=== PATIENT | female | born 1930 | race African-American/Black ===

== ENCOUNTER 2016-09-30 09:15 | Emergency (ER) | payer OTHER, MEDICAID ==
[2016-09-30 09:30] VITALS: BP 134/61; BMI 14.8
--- NOTE | 2016-09-30 09:51 | DR.GENAD ---
HPI - PCP Primary Care Physician: obdulio - Complaint/Symptoms Chief Complaint Doctors Comments: Dr. Miguel had patient sent to the emergency room to have feeding tube evaluated because the nurse states when they use it the patient cries out in pain and the tube has been leaking around the tube. Patient on bolus feeding at the [facility]. They denies fever, chills, nausea or vomiting. States to remove tube and replace with a recinos cath if it is not working. Chief Complaint:: [facility] called and stated that when you flush the gtube she would hollar like it was painfull. they stated that dr miguel wanted the patient sent here and he would see her in the er. Self Treatment fo Chief Complaint: gtube was flushed and air was heard. pt did tolerate well. - Nurses notes reviewed Nurses Notes Review: Yes - Source History Provided: Patient - Mode of Arrival Mode of Arrival: Ambulatory - Timing Onset of Chief Complaint: 09/30/16 Came on: Gradually - Duration Duration: Unknown - Location Location: epigastric area - Severity Severity: Moderate - Modifying Factors Worsens:: nothing Improves:: nothing PMH - PMH Past Medical History: Yes Past Medical History: Anxiety, Arthritis, Dementia, GERD, Hypertension Past Surgical History: Yes (unable to verbalize) - Family History History of Family Medical Conditions: No - Social History Does patient currently use any type of tobacco product: No Have you used tobacco products in the last 12 months: No Type of Tobacco Use: None Does any household member use tobacco: No Alcohol Use: None Do you use any recreational Drugs:: No Lives With: Family Lives Where: Home - infectious screening In the last 2 months have you had wt loss of >10#?: NO Have you had fever, night sweats or hemotysis?: No Have you traveled outside the country in the last 6 months?: No Isolation: Standard ROS - Review of Systems Constitutional: No Symptoms Reported, Loss of Appetite Eyes: No Symptoms Reported ENTM: No Symptoms Reported Respiratoy: No Symptoms Reported Cardiovascular: No Symptoms Reported Gastrointestinal/Abdominal: No Symptoms Reported. negative: See HPI, Abdominal Pain, Constipation, Diarrhea, Nausea, Vomiting, Food Intolerance, Other Genitourinary: No Symptoms Reported Neurological: No Symptoms Reported, Weakness, Problems Walking (patient bed confined) Musculoskeletal: No Symptoms Reported Integumentary: No Symptoms Reported Hematologic/Lymphatic: No Symptoms Reported Endocrine: No Symptoms Reported Psychiatric: No Symptoms Reported PE - Vital Signs Vitals: Temperature 97.7 F Pulse Rate 81 Respiratory Rate 16 Blood Pressure 134/61 O2 Sat by Pulse Oximetry 98 - General Limitations: Altered Mental Status General Appearance: Alert, In No Apparent Distress, Cachectic - Head Head Exam: Normal Inspection, Atraumatic, Normocephalic - Eyes Eye exam: Normal Appearance, PERRL, EOMI. negative: Scleral Icterus, Conjunctival Injection, Nystagmus, Miosis, Mydrasis, Periorbital Swelling, Periorbital Tenderness, Other - ENT ENT Exam: Normal Exam, Normal Oropharynx, Normal External Ear Exam, Mucous Membranes Moist, TM's Normal Bilaterally External Ear Exam: Normal External Inspection TM/Canal Exam: Bilateral Normal Nose Exam: Normal Nose Exam. negative: Sinus Tenderness, Nasal Deviation, Crepitus, Septal Hematoma, Laceration, Abrasion, Other Mouth Exam: Normal Inspection Throat Exam: Normal Inspection - Neck Neck Exam: Normal Inspection, Full ROM, Trachea Midline. negative: Tenderness, Meningismus, Lymphadenopathy, Thyromegaly, Other - Chest Chest Inspection: Normal Inspection, Symmetric Chest Wall Rise - Respiratory Respiratory Exam: Normal Lung Sounds Bilat Respiratory Exam: Bilateral Clear to Auscultation, Bilateral Decreased Breath Sounds - Cardiovascular Cardiovascular Exam: Regular Rate, Normal Rhythm, Normal Heart Sounds, Systolic Murmur - Abdominal Exam Abdominal Exam: Normal Inspection, Normal Bowel Sounds, Soft, Dimnished Bowel Sounds. negative: Distention, Tenderness, Guarding, Rebound, Rigidity, Hyperactive Bowel Sounds, Hypoactive Bowel Sounds, Organomegaly, Trauma, Incision, Ascites, Mass, Bruit, Pulsatile Mass, Hernia, Other Abdominal Tenderness: Epigastrium, Mild. negative: RUQ, RLQ, LUQ, LLQ, Suprapubic, Diffuse, Moderate, Severe, Other - Extremities Extremities Exam: Normal Inspection, Normal Capillary Refill. negative: Full ROM (contractures lower extremities), Tenderness, Edema, Joint Swelling, Calf Tenderness, Other - Back Back Exam: Normal Inspection, Full ROM. negative: Tenderness, (R) CVA Tenderness, (L) CVA Tenderness, Muscle Spasm, Paraspinal Tenderness, Vertebral Tenderness, Rashes, (R) Sciatic Notch Tenderness, (L) Sciatic Notch Tendern, (R ) Straight Leg Raise, (L) Straight Leg Raise, Other - Neurologic Neurological Exam: Oriented X3, Reflexes Normal. negative: Alert (lethargic), CN II-XII Intact (unable to completely evaluate), Normal Gait (gait not tested) - Psychiatric Psychiatric Exam: Normal Affect. negative: Normal Mood, Depressed, Agitated, Anxious, Flat Affect, Manic, Homicidal Ideation, Suicidal Ideation, Other - Skin Skin Exam: Warm, Dry, Intact, Pallor ROR - Labs Reviewed Laboratory Results Reviewed?: Yes (all labs and x-ray results reviewed and discussed with patient) Result Diagrams: 09/30/16 10:20 09/30/16 10:20 Laboratory: WBC 6.8 X10^3/uL (3.6-10.0) 09/30/16 10:20 RBC 5.40 X10^6/uL (3.5-5.4) 09/30/16 10:20 Hgb 13.7 g/dL (12.0-16.0) 09/30/16 10:20 Hct 43.1 % (36.0-47.0) 09/30/16 10:20 MCV 79.9 fL (80.0-100.0) L 09/30/16 10:20 MCH 25.4 pg (27.0-34.0) L 09/30/16 10:20 MCHC 31.8 g/dL (33.0-35.0) L 09/30/16 10:20 RDW 14.0 % (11.6-16.5) 09/30/16 10:20 Plt Count 392 X10^3/uL (150.0-450.0) 09/30/16 10:20 Plt Count Comment Adequate (ADEQUATE) 09/30/16 10:20 MPV 8.0 fL (7.4-11.0) 09/30/16 10:20 Neut % 56.1 % (42.0-75.0) 09/30/16 10:20 Lymph % 31.7 % (21.0-51.0) 09/30/16 10:20 Davis % 9.4 % (0.0-13.0) 09/30/16 10:20 Eos % 1.7 % (0.9-2.9) 09/30/16 10:20 Baso % 1.1 % (0.2-1.0) H 09/30/16 10:20 Neut # 3.8 x10^3/uL (2.2-4.8) 09/30/16 10:20 Lymph # 2.1 X10^3/uL (1.3-2.9) 09/30/16 10:20 Davis # 0.6 x10^3/uL (0.3-0.8) 09/30/16 10:20 Eos # 0.1 x10^3/uL (0.0-0.2) 09/30/16 10:20 Baso # 0.1 X10^3/uL (0.0-0.1) 09/30/16 10:20 Absolute Nucleated RBC 0.0 /100WBC 09/30/16 10:20 Plt Morphology Comment Normal (NORMAL) 09/30/16 10:20 RBC Morphology Abnormal (NORMAL) A 09/30/16 10:20 Hypochromasia Slight A 09/30/16 10:20 Sodium 143 mmol/L (136-145) 09/30/16 10:20 Corrected Sodium TNP 09/30/16 10:20 Potassium 3.6 mmol/L (3.5-5.1) 09/30/16 10:20 Chloride 105 mmol/L (98-107) 09/30/16 10:20 Carbon Dioxide 26.7 mmol/L (21-32) 09/30/16 10:20 BUN 19 mg/dL (7-18) H 09/30/16 10:20 Creatinine 0.80 mg/dL (0.55-1.02) 09/30/16 10:20 Est GFR (MDRD) Af Amer > 60 (>60) 09/30/16 10:20 Est GFR (MDRD) Non-Af > 60 (>60) 09/30/16 10:20 Glucose 99 mg/dL (65-99) 09/30/16 10:20 Calcium 9.3 mg/dL (8.5-10.1) 09/30/16 10:20 - XRAY XRAY Interpreted by: Radiologist (KUB: Intraluminal position of an uncomplicated gastric tube. with contrast filling the stomach indicate intraluminal position of gastric tube without visible complications.) - Diagnosis Discharge Problem: gastric tube disfunction, Constipation - Discharge Plan Disposition: 64 DIS/XFER TO MEDICAID NURS Condition: Stable - Follow ups/Referrals Follow ups/Referrals: CHEMO MIGUEL [Primary Care Provider] - 3 days - Instructions Instructions: Care of a Feeding Tube, Constipation, Adult
--- NOTE | 2016-09-30 10:21 | RAD ---
History: Evaluate G-tube placement. Exam: KUB imaging demonstrates contrast filling the stomach which would indicate intraluminal positi on of a gastric tube without visible complication. The bowel gas pattern is nonspecific. There is a large quantity of colonic stool observed. No other complications are appreciated. There is diffuse t horacolumbar spondylosis without acute fracture observed. Impression: Intraluminal position of an uncomplicated gastric tube. Reported By:
[2016-09-30 10:33] LABS: BASOPHILS # (AUTO) 0.1 X10^3/uL (0.0-0.1); BASOPHILS % (AUTO) 1.1 % (0.2-1.0); EOSINOPHILS # (AUTO) 0.1 x10^3/uL (0.0-0.2); EOSINOPHILS % (AUTO) 1.7 % (0.9-2.9); HEMATOCRIT 43.1 % (36.0-47.0); HEMOGLOBIN 13.7 g/dL (12.0-16.0); LYMPHOCYTES # (AUTO) 2.1 X10^3/uL (1.3-2.9); LYMPHOCYTES % (AUTO) 31.7 % (21.0-51.0); MEAN CORPUSCULAR HEMOGLOBIN 25.4 pg (27.0-34.0); MEAN CORPUSCULAR HGB CONC 31.8 g/dL (33.0-35.0); MEAN CORPUSCULAR VOLUME 79.9 fL (80.0-100.0); MONOCYTES # (AUTO) 0.6 x10^3/uL (0.3-0.8); MONOCYTES % (AUTO) 9.4 % (0.0-13.0); NEUTROPHILS # (AUTO) 3.8 x10^3/uL (2.2-4.8); NEUTROPHILS % (AUTO) 56.1 % (42.0-75.0); PLATELET COUNT 392 X10^3/uL (150.0-450.0); WHITE BLOOD COUNT 6.8 X10^3/uL (3.6-10.0)
[2016-09-30 10:57] LABS: HYPOCHROMASIA SLIGHT; PLATELET MORPHOLOGY COMMENT NORMAL (NORMAL)
[2016-09-30 11:04] LABS: BLOOD UREA NITROGEN 19 mg/dL (7-18); CALCIUM 9.3 mg/dL (8.5-10.1); CARBON DIOXIDE 26.7 mmol/L (21-32); CHLORIDE 105 mmol/L (98-107); GLUCOSE 99 mg/dL (65-99); SODIUM 143 mmol/L (136-145); eGFR BLACK RACES > 60 (>60); eGFR NON BLACK RACES > 60 (>60)
[2016-09-30] MEDS ORDERED: DULCOLAX TAB EC 5 MG PO ONE (11:25)
[2016-09-30] MEDS ORDERED: CHRONULAC PO STA (11:26)
[2016-09-30] MEDS ORDERED: CHRONULAC ONE (11:44)
== END 2016-09-30 12:00 ==
LOC: ER 09:21
DX: K94.23 Gastrostomy malfunction (principal); K59.09 Other constipation
CPT/HCPCS: 36415; 74000; 80048; 85025; 96365; 96374; 99283; A4222

== ENCOUNTER 2016-10-01 18:37 | Inpatient (IN) | payer OTHER, MEDICAID ==
[2016-10-01 21:35] LABS: BASOPHILS # (AUTO) 0.1 X10^3/uL (0.0-0.1); BASOPHILS % (AUTO) 1.9 % (0.2-1.0); EOSINOPHILS # (AUTO) 0.2 x10^3/uL (0.0-0.2); EOSINOPHILS % (AUTO) 3.2 % (0.9-2.9); HEMATOCRIT 42.9 % (36.0-47.0); HEMOGLOBIN 13.8 g/dL (12.0-16.0); LYMPHOCYTES # (AUTO) 2.1 X10^3/uL (1.3-2.9); LYMPHOCYTES % (AUTO) 28.6 % (21.0-51.0); MEAN CORPUSCULAR HEMOGLOBIN 25.5 pg (27.0-34.0); MEAN CORPUSCULAR VOLUME 79.5 fL (80.0-100.0); MEAN PLATELET VOLUME 7.7 fL (7.4-11.0); MONOCYTES # (AUTO) 0.6 x10^3/uL (0.3-0.8); MONOCYTES % (AUTO) 8.9 % (0.0-13.0); NEUTROPHILS # (AUTO) 4.2 x10^3/uL (2.2-4.8); NEUTROPHILS % (AUTO) 57.4 % (42.0-75.0); PLATELET COUNT 421 X10^3/uL (150.0-450.0); RED CELL DISTRIBUTION WIDTH 14.1 % (11.6-16.5); WHITE BLOOD COUNT 7.3 X10^3/uL (3.6-10.0)
[2016-10-01 21:44] LABS: ALANINE AMINOTRANSFERASE 15 Units/L (12-78); ALBUMIN 3.3 g/dL (3.4-5.0); ALKALINE PHOSPHATASE 93 Units/L (46-116); ASPARTATE AMINO TRANSFERASE 20 Units/L (15-37); BLOOD UREA NITROGEN 27 mg/dL (7-18); CALCIUM 9.8 mg/dL (8.5-10.1); CARBON DIOXIDE 25.5 mmol/L (21-32); CHLORIDE 104 mmol/L (98-107); COR CA(FOR HYPOALB) 10.4 mg/dL (8.5-10.1); CREATININE 0.91 mg/dL (0.55-1.02); GLUCOSE 90 mg/dL (65-99); SODIUM 143 mmol/L (136-145); TOTAL PROTEIN 8.6 g/dL (6.4-8.2); eGFR BLACK RACES > 60 (>60); eGFR NON BLACK RACES > 60 (>60)
[2016-10-01] MEDS: NS 1000 ML 1,000 ML IV SCH (22:03)
[2016-10-01 22:19] LABS: PLATELET MORPHOLOGY COMMENT NORMAL (NORMAL)
[2016-10-02 00:26] LABS: BILIRUBIN,URINE NEGATIVE (NEGATIVE); BLOOD/HEMOGLOBIN,URINE 1+ (NEGATIVE); GLUCOSE, URINE NEGATIVE (NEGATIVE); KETONES,URINE 3+ (NEGATIVE); LEUKOCYTE ESTERASE ,URINE 1+ (NEGATIVE); NITRITES,URINE NEGATIVE (NEGATIVE); PROTEIN,URINE 2+ (NEGATIVE); UROBILINOGEN,URINE 1+ (NORMAL)
[2016-10-02 00:39] LABS: APPEARANCE,URINE SLIGHTLY HAZY (CLEAR); COLOR,URINE YELLOW (YELLOW)
[2016-10-02 00:40] LABS: BACTERIA,URINE 1+ /HPF (NEGATIVE); MUCUS,URINE MODERATE /HPF (NEGATIVE); RBC,URINE 0-2 /HPF (NEGATIVE); SQUAMOUS EPITHELIAL CELL,UR RARE /HPF (NEGATIVE)
--- NOTE | 2016-10-02 06:36 | RAD ---
HISTORY: Abdominal pain, G-tube malfunction Study: Chest one view Comparison: None Findings: The heart is within normal limits in size. The aorta is ectatic. The sharron are normal. The lungs are free of acute alveolar infiltrates. No pleural effusions are identified. The visualized bony thorax is unremarkable. IMPRESSION: Lungs clear Reported By:
--- NOTE | 2016-10-02 06:36 | RAD ---
HISTORY: Abdomen pain, PEG tube malfunction Study: KUB Comparison: September 30, 2016 Findings: A gastrostomy tube is present with the balloon overlying the region of the gastric antrum distally. With the exception of a fairly large rectal fecal impaction, bowel gas pattern is unremarkable. No e vidence of bowel obstruction is seen. No opaque stones identified. Lung bases are clear. Osseous str uctures are intact. IMPRESSION: The gastrostomy tube is present with the balloon overlying the region of the gastric antrum distally . 9.2 centimeter rectal fecal impaction. No evidence of bowel obstruction. Reported By:
[2016-10-02] MEDS ORDERED: FLEET ENEMA ADULT RECTAL PRN (08:42)
[2016-10-02] MEDS ORDERED: ROXANOL ORAL SOLN 20MG UDC PO PRN (08:42)
[2016-10-02] MEDS ORDERED: NORCO 7.5/325 MG TAB GT PRN (08:42)
[2016-10-02] MEDS ORDERED: ATIVAN TAB 0.5 MG GT PRN (08:42)
[2016-10-02] MEDS: MORPHINE SULFATE INJ 2 MG IVP PRN ×2 (09:26→20:56)
[2016-10-02] MEDS: ASPIRIN 81 MG CHEWTAB GT SCH (09:40)
[2016-10-02] MEDS: FOLIC ACID TAB 1 MG GT SCH (09:40)
[2016-10-02] MEDS: PROTONIX INJ 40 MG VIAL IVP SCH ×2 (10:52→20:56)
[2016-10-02] MEDS: ZOSYN VIAL 4.5 GM 4.5 GM in NS 100 ML IV + SPIKE MINIBAG* 100 ML IV SCH ×3 (10:52→21:07)
--- NOTE | 2016-10-02 13:29 | DR.H&P ---
H&P - History & Physical for Day of: H&P Date: 10/01/16 - Chief Complaint Chief Complaint: 86 BF DIRECT ADMIT FROM [facility] DUE TO PEG TUBE MALFUNCTION. PAIN LOCALIZED TO PEG TUBE SITE. - Allergies Allergies/Adverse Reactions: Allergies Allergy/AdvReac Type Severity Reaction Status Date / Time No Known Drug Allergy Allergy Verified 09/30/16 09:16 - History of Present Illness History of Present Illness: 86 BF ADMIT FOR EVALUATION FOR PEG TUBE MALFUNCTION. PLAN TO REPLACE MALFUNCTION TUBE. CONTINUE TO MONITOR BP AND NOT USE OF PEG TUBE. - Past Medical History Past Medical History: Anxiety, Arthritis, Dementia, GERD, Hypertension - Past Surgical History Surgical History: Other - Social History Does patient currently use any type of tobacco product: No Have you used tobacco products in the last 12 months: No Type of Tobacco Use: None Does any household member use tobacco: No Alcohol Use: None Drug Use: None - Review of Systems Constitutional: Weakness Eyes: No Symptoms Reported ENT: No Symptoms Reported Respiratory: No Symptoms Reported Cardiovascular: No Symptoms Reported Gastrointestinal: Abdominal Pain, Other (PEG TUBE) Genitourinary: No Symptoms Reported Musculoskeletal: No Symptoms Reported Skin: No Symptoms Reported Neurological: Weakness, Confusion - Physical Exam Vital Signs: Temperature 98.5 F Pulse Rate [Right Radial] 87 Respiratory Rate 18 Blood Pressure [Left Arm] 131/59 Blood Pressure 134/61 O2 Sat by Pulse Oximetry 96 Oriented: Normal Eyes: Normal Ear: Normal Nose: Normal Throat: Normal Respiratory: RLL Diminished, LLL Diminished Cardiovascular: Normal : Normal Auscultation: Bowel Sounds: Normal Palpation: Normal Tenderness: Other (LOCALIZED TENDER TO MID ABD TO PEG TUBE) Skin: Decreased [place] Musculoskeletal: Normal Psychiatric: Normal Mood Description: Calm Speech Pattern: Unclear (MOANING)
--- NOTE | 2016-10-02 13:35 | PCM.PROG ---
Progress Note - Progress Note for Day of Date: 10/02/16 - Past Medical Family Social History Past Med/Fam/Surg Hx: No changes since H&P Allergies: Allergies No Known Drug Allergy Allergy (Verified 09/30/16 09:16) - Review of Systems ROS: No change since H&P - Vital Signs and I&O's Vital Signs: Temperature 98.5 F Pulse Rate [Right Radial] 87 Respiratory Rate 18 Blood Pressure [Left Arm] 131/59 Blood Pressure 134/61 O2 Sat by Pulse Oximetry 96 Intake and Output: Intake & Output 09/30/16 10/01/16 10/02/16 10/03/16 11:59 11:59 11:59 11:59 Intake Total 60 Output Total 100 Balance -40 - Physical Exam Oriented: Normal Eyes: Normal Ear: Normal Nose: Normal Throat: Normal Respiratory: Diminished Cardiovascular: Normal : Normal Auscultation: Bowel Sounds: Normal Tenderness: Other (LOCALIZED TENDER TO MID ABD TO PEG TUBE) Skin: Decreased Turgur Musculoskeletal: Normal Psychiatric: Normal Mood Description: Calm Speech Pattern: Unclear (MOANING) - Laboratory and Diagnostics Result Diagrams: 10/01/16 21:26 10/01/16 21:26 Labs: 10/02/16 05:03 G Tube Gram Stain - Final Laboratory WBC 7.3 X10^3/uL (3.6-10.0) 10/01/16 21:26 RBC 5.40 X10^6/uL (3.5-5.4) 10/01/16 21:26 Hgb 13.8 g/dL (12.0-16.0) 10/01/16 21:26 Hct 42.9 % (36.0-47.0) 10/01/16 21:26 MCV 79.5 fL (80.0-100.0) L 10/01/16 21:26 MCH 25.5 pg (27.0-34.0) L 10/01/16 21:26 MCHC 32.0 g/dL (33.0-35.0) L 10/01/16 21:26 RDW 14.1 % (11.6-16.5) 10/01/16 21:26 Plt Count 421 X10^3/uL (150.0-450.0) 10/01/16 21:26 Plt Count Comment Adequate (ADEQUATE) 10/01/16 21:26 MPV 7.7 fL (7.4-11.0) 10/01/16 21:26 Neut % 57.4 % (42.0-75.0) 10/01/16 21:26 Lymph % 28.6 % (21.0-51.0) 10/01/16 21:26 [place] % 8.9 % (0.0-13.0) 10/01/16 21:26 Eos % 3.2 % (0.9-2.9) H 10/01/16 21:26 Baso % 1.9 % (0.2-1.0) H 10/01/16 21:26 Neut # 4.2 x10^3/uL (2.2-4.8) 10/01/16 21:26 Lymph # 2.1 X10^3/uL (1.3-2.9) 10/01/16 21:26 [place] # 0.6 x10^3/uL (0.3-0.8) 10/01/16 21:26 Eos # 0.2 x10^3/uL (0.0-0.2) 10/01/16 21:26 Baso # 0.1 X10^3/uL (0.0-0.1) 10/01/16 21:26 Absolute Nucleated RBC 0.1 /100WBC 10/01/16 21:26 Plt Morphology Comment Normal (NORMAL) 10/01/16 21:26 RBC Morphology Normal (NORMAL) 10/01/16 21:26 Sodium 143 mmol/L (136-145) 10/01/16 21:26 Corrected Sodium TNP 10/01/16 21:26 Potassium 3.5 mmol/L (3.5-5.1) 10/01/16 21:26 Chloride 104 mmol/L (98-107) 10/01/16 21:26 Carbon Dioxide 25.5 mmol/L (21-32) 10/01/16 21:26 BUN 27 mg/dL (7-18) H 10/01/16 21:26 Creatinine 0.91 mg/dL (0.55-1.02) 10/01/16 21:26 Est GFR (MDRD) Af Amer > 60 (>60) 10/01/16 21:26 Est GFR (MDRD) Non-Af > 60 (>60) 10/01/16 21:26 Glucose 90 mg/dL (65-99) 10/01/16 21:26 Calcium 9.8 mg/dL (8.5-10.1) 10/01/16 21:26 Corrected Calcium 10.4 mg/dL (8.5-10.1) H 10/01/16 21:26 Total Bilirubin 0.40 mg/dL (0.2-1.0) 10/01/16 21:26 AST 20 Units/L (15-37) 10/01/16 21:26 ALT 15 Units/L (12-78) 10/01/16 21:26 Alkaline Phosphatase 93 Units/L (46-116) 10/01/16 21:26 Total Protein 8.6 g/dL (6.4-8.2) H 10/01/16 21:26 Albumin 3.3 g/dL (3.4-5.0) L 10/01/16 21:26 Globulin 5.3 g/dL (2.5-4.5) H 10/01/16 21:26 Albumin/Globulin Ratio 0.6 Ratio (1.1-2.1) L 10/01/16 21:26 Specimen Type Catherized urine 10/02/16 00:20 Urine Color Yellow (YELLOW) 10/02/16 00:20 Urine Appearance Slightly hazy (CLEAR) 10/02/16 00:20 Urine pH 6.0 (5.0 - 8.0) 10/02/16 00:20 Ur Specific [place] 1.025 (1.000-1.030) 10/02/16 00:20 Urine Protein 2+ (NEGATIVE) 10/02/16 00:20 Urine Glucose (UA) Negative (NEGATIVE) 10/02/16 00:20 Urine Ketones 3+ (NEGATIVE) 10/02/16 00:20 Urine Occult Blood 1+ (NEGATIVE) 10/02/16 00:20 Urine Nitrite Negative (NEGATIVE) 10/02/16 00:20 Urine Bilirubin Negative (NEGATIVE) 10/02/16 00:20 Urine Urobilinogen 1+ (NORMAL) 10/02/16 00:20 Ur Leukocyte Esterase 1+ (NEGATIVE) 10/02/16 00:20 Urine RBC 0-2 /HPF (NEGATIVE) 10/02/16 00:20 Urine WBC 6-8 /HPF (NEGATIVE) 10/02/16 00:20 Ur Squamous Epith Cells Rare /HPF (NEGATIVE) 10/02/16 00:20 Urine Bacteria 1+ /HPF (NEGATIVE) 10/02/16 00:20 Urine Mucus Moderate /HPF (NEGATIVE) 10/02/16 00:20 Ur Culture Indicated? Yes/culture set up 10/02/16 00:20 - Plan (1) PEG tube malfunction Status: Acute Plan: DO NOT USE PEG TUBE, PLAN TO REPLACE (2) Dementia Status: Chronic Qualifiers: Dementia type: D Alzheimer's disease onset: A Dementia behavioral disturbance: D Plan: MONITOR (3) GERD (gastroesophageal reflux disease) Status: Chronic Qualifiers: Esophagitis presence: E Plan: IV PROTONIX (4) HTN (hypertension) Status: Chronic Qualifiers: Hypertension type: H (5) Osteoarthritis Status: Chronic Qualifiers: Osteoarthritis location: O Osteoarthritis type: O Spinal region: S Spinal osteoarthritis complication: S Laterality: L
[2016-10-02] MEDS ORDERED: DIPRIVAN VIAL 20 ML ONE (15:37)
[2016-10-02] MEDS ORDERED: NS 500 ML IV 500 ML IV ONE (15:41)
[2016-10-03] MEDS: NS 1000 ML 1,000 ML IV SCH (00:08)
[2016-10-03] MEDS: ZOSYN VIAL 4.5 GM 4.5 GM in NS 100 ML IV + SPIKE MINIBAG* 100 ML IV SCH (05:38)
[2016-10-03 05:57] LABS: BASOPHILS # (AUTO) 0.1 X10^3/uL (0.0-0.1); BASOPHILS % (AUTO) 1.1 % (0.2-1.0); EOSINOPHILS # (AUTO) 0.1 x10^3/uL (0.0-0.2); EOSINOPHILS % (AUTO) 0.9 % (0.9-2.9); HEMATOCRIT 36.5 % (36.0-47.0); HEMOGLOBIN 11.6 g/dL (12.0-16.0); LYMPHOCYTES # (AUTO) 1.7 X10^3/uL (1.3-2.9); LYMPHOCYTES % (AUTO) 18.5 % (21.0-51.0); MEAN CORPUSCULAR HEMOGLOBIN 25.4 pg (27.0-34.0); MEAN CORPUSCULAR HGB CONC 31.6 g/dL (33.0-35.0); MEAN CORPUSCULAR VOLUME 80.3 fL (80.0-100.0); MONOCYTES # (AUTO) 0.8 x10^3/uL (0.3-0.8); NEUTROPHILS # (AUTO) 6.4 x10^3/uL (2.2-4.8); NEUTROPHILS % (AUTO) 70.5 % (42.0-75.0); PLATELET COUNT 387 X10^3/uL (150.0-450.0); RED BLOOD COUNT 4.55 X10^6/uL (3.5-5.4); RED CELL DISTRIBUTION WIDTH 13.9 % (11.6-16.5); WHITE BLOOD COUNT 9.1 X10^3/uL (3.6-10.0)
[2016-10-03 06:00] LABS: ALANINE AMINOTRANSFERASE 14 Units/L (12-78); ALBUMIN 2.9 g/dL (3.4-5.0); ALKALINE PHOSPHATASE 77 Units/L (46-116); ASPARTATE AMINO TRANSFERASE 17 Units/L (15-37); BLOOD UREA NITROGEN 24 mg/dL (7-18); CALCIUM 8.9 mg/dL (8.5-10.1); CHLORIDE 108 mmol/L (98-107); COR CA(FOR HYPOALB) 9.8 mg/dL (8.5-10.1); CREATININE 0.76 mg/dL (0.55-1.02); GLUCOSE 84 mg/dL (65-99); SODIUM 146 mmol/L (136-145); TOTAL PROTEIN 7.6 g/dL (6.4-8.2); eGFR BLACK RACES > 60 (>60); eGFR NON BLACK RACES > 60 (>60)
[2016-10-03 06:21] LABS: PLATELET MORPHOLOGY COMMENT NORMAL (NORMAL)
[2016-10-03] MEDS ORDERED: K-RIDER 10 MEQ/NS 100 ML 10 MEQ/100 ML BAG IV PRN (06:26)
[2016-10-03] MEDS ORDERED: POTASSIUM CHLORIDE LIQ 20 MEQ UDC PO PRN (06:26)
[2016-10-03] MEDS: MORPHINE SULFATE INJ 2 MG IVP PRN (07:06)
[2016-10-03 09:36] VITALS: BMI 14.2
[2016-10-03] MEDS: PROTONIX INJ 40 MG VIAL IVP SCH (11:50)
[2016-10-03] MEDS: FOLIC ACID TAB 1 MG GT SCH (11:50)
[2016-10-03] MEDS: ASPIRIN 81 MG CHEWTAB GT SCH (11:50)
[2016-10-03 12:05] VITALS: BP 109/57
[2016-10-03] MEDS ORDERED: MILK OF MAGNESIA PO SCH (13:00)
== END 2016-10-03 12:45 | DRG 395 ==
LOC: MED/SURG 18:37
PROVIDERS: ADMIT Internal Medicine; ATTEND Internal Medicine
PROC: 0D20XUZ Change Feeding Device in Upper Intestinal Tract, External Approach (ICD-10-PCS; principal; 2016-10-02 17:00)
DX: K94.23 Gastrostomy malfunction (principal); R10.84 Generalized abdominal pain; R94.31 Abnormal electrocardiogram [ECG] [EKG]; K21.9 Gastro-esophageal reflux disease without esophagitis; I10 Essential (primary) hypertension; B96.5 Pseudomonas (aeruginosa) (mallei) (pseudomallei) as the cause of diseases classified elsewhere; B95.1 Streptococcus, group B, as the cause of diseases classified elsewhere; F03.90 Unspecified dementia, unspecified severity, without behavioral disturbance, psychotic disturbance, mood disturbance, and anxiety; R63.0 Anorexia
CPT/HCPCS: 36415; 71010; 74000; 80053; 81001; 85025; 87070; 87077; 87086; 87186; 87205; 88305; 93005; 93010; A4222; C9113; A4217; J2270; J2543; J3490